=== PATIENT | male | born 1995 | race African-American/Black ===

== ENCOUNTER 2017-09-13 19:36 | Emergency (ER) | payer OTHER ==
--- NOTE | 2017-09-13 19:46 | PDOC ---
History of Present Illness - History of Present Illness Initial Comments: 09/13/17 20:03 History of Present Illness: 21 y/o M with no PMH presents to the ED with abrasions/lacerations to his right second and right fourth digits. 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 Patient believes there may be glass in his finger. Denies any other complaints. Review of Systems: CONSTITUTIONAL: Absent: fever, chills, diaphoresis, generalized weakness, malaise, loss of appetite HEENT: Absent: rhinorrhea, nasal congestion, throat pain, throat swelling, difficulty swallowing, mouth swelling, ear pain, eye pain, visual changes CARDIOVASCULAR: Absent: chest pain, syncope, palpitations, irregular heart rate , lightheadedness, peripheral edema RESPIRATORY: Absent: cough, shortness of breath, dyspnea with exertion, orthopnea, wheezing, stridor, hemoptysis GASTROINTESTINAL: Absent: abdominal pain, abdominal distension, nausea, vomiting , diarrhea, constipation, melena, hematochezia GENITOURINARY: Absent: dysuria, frequency, urgency, hesitancy, hematuria, flank pain, genital pain MUSCULOSKELETAL: Absent: myalgia, arthralgia, joint swelling SKIN: +abrasions/lacerations to right 2nd and 4th digits. Absent: rash, itching , pallor HEMATOLOGIC/IMMUNOLOGIC: Absent: easy bleeding, easy bruising, lymphadenopathy, frequent infections ENDOCRINE: Absent: unexplained weight gain, unexplained weight loss, heat intolerance, cold intolerance NEUROLOGIC: Absent: headache, focal weakness or paresthesias, dizziness, unsteady gait, seizure, mental status changes, bladder or bowel incontinence PSYCHIATRIC: Absent: anxiety, depression, suicidal or homicidal ideation, hallucinations. <Yesica Alonso A - Last Filed: 09/13/17 20:03> <Matt Soliz - Last Filed: 09/13/17 21:10> - General Chief Complaint: Injury Stated Complaint: INJURY TO FINGER AT WORK Time Seen by Provider: 09/13/17 19:39 Past History <Yesica Alonso - Last Filed: 09/13/17 20:03> <Matt Soliz - Last Filed: 09/13/17 21:10> - Past Medical History Allergies/Adverse Reactions: Allergies Allergy/AdvReac Type Severity Reaction Status Date / Time No Known Allergies Allergy Verified 09/13/17 19:37 Home Medications: Ambulatory Orders NK [No Known Home Medication] 09/13/17 *Physical Exam - Vital Signs Last Vital Signs Temp Pulse Resp BP Pulse Ox 98.3 F 64 18 123/73 100 09/13/17 19:37 09/13/17 19:37 09/13/17 19:37 09/13/17 19:37 09/13/17 19:37 <Yesica Alonso - Last Filed: 09/13/17 20:03> Medical Decision Making - Medical Decision Making 09/13/17 19:50 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 Sustained abrasions/lacerations to the distal phalanges 2 and 4, right hand. Physical exam: Alert and oriented no acute distress cheerful and cooperative Afebrile, vital signs normal Right hand: Superficial abrasion/avulsion of the skin over the dorsolateral distal phalanx, #2. Not involving the nail. Also 1 cm superficial laceration of the distal pulp, distal phalanx #4. Neither was joint involvement. Full flexion and extension of both DIP joints against resistance, as well as PIP joints. Good capillary refill. No distal sensory deficits. Impression: Superficial abrasions/lacerations of fingertips, rule out foreign body Plan: X-ray and further management of skin injuries. 09/13/17 21:06 Original x-ray showed a possible foreign body dorsal aspect of second digit, distal phalanx. Procedure note: Digital block 1% Xylocaine plain, after skin prep with Betadine and alcohol. Wound was explored. No foreign body was visualized. Tendons were intact. Wound was completely irrigated with normal saline under pressure, and repeat x-ray was obtained. Repeat x-ray: Foreign body shadow has disappeared. The same that foreign material was irrigated clear from the wound. Wounds were dressed with bacitracin, edges approximated with Steri-Strips. Wound care discussed. Recheck with sign of infection. Fully ambulatory and in no pain upon discharge to follow-up as directed <Matt Soliz - Last Filed: 09/13/17 21:10> *DC/Admit/Observation/Transfer - Attestations Scribe Attestion: 09/13/17 20:03 Documentation prepared by Yesica Alonso, acting as emergency medical technician/driver for Mtat Romo MD. <Yesica Alonso - Last Filed: 09/13/17 20:03> - Discharge Dispostion Admit: No <Matt Soliz - Last Filed: 09/13/17 21:10> Diagnosis at time of Disposition: Laceration of finger Qualifiers: Encounter type: initial encounter Finger: index finger Damage to nail status: without damage Foreign body presence: with foreign body Laterality: right Qualified Code(s): S61.220A - Laceration with foreign body of right index finger without damage to nail, initial encounter - Discharge Dispostion Disposition: HOME Condition at time of disposition: Improved - Patient Instructions Additional Instructions: Rest and elevate. Keep clean and dry. Wound check and dressing change in 2 days. May return to the emergency room or see hand specialist as referred. - Post Discharge Activity Forms/Work/School Notes: Back to Work
[2017-09-13 19:50] VITALS: BP 123/73; PULSE 64; TEMP 98.3; BMI 18.8
[2017-09-13] MEDS ORDERED: LIDOCAINE HCL 1%, 10 MG/ML (20ML VIAL) ONE (20:36)
== END 2017-09-13 21:33 | disposition home or self-care (01) ==
LOC: FER 19:36
CPT/HCPCS: 73140-TC-RT; 99282-25